=== PATIENT | male | born 1935 | race Two or more races ===

== ENCOUNTER 2019-07-19 13:35 | Emergency (ER) | payer OTHER ==
[~2019-07-19] VITALS: Ht 157.5 cm; Wt 68.0 kg
[~2019-07-19 13:35] MED LIST: CARAFATE SU1 G/10 ML PO; CIPRO500 MG PO; FLAGYL500MG PO; INTESTINEX1 CA1 PO; PROTONIX40 MG PO; TRAM1TAB PO
[2019-07-19] MEDS ORDERED: CIPRO500 MG PO (13:58)
== END 2019-07-19 19:40 | disposition home or self-care (01) ==
LOC: ER 13:35
DX: K52.89 Other specified noninfective gastroenteritis and colitis (principal); K94.01 Colostomy hemorrhage

== ENCOUNTER 2021-10-14 05:30 | Day surgery (SDC) | payer OTHER | END 2021-10-14 10:25 | disposition home or self-care (01) | LOC: AMB-ENDOS 05:30 → CIR.AMB 13:00 | PROVIDERS: ATTEND Surgery | DX: D12.4 Benign neoplasm of descending colon (principal); Z93.3 Colostomy status; Z85.038 Personal history of other malignant neoplasm of large intestine; K43.5 Parastomal hernia without obstruction or gangrene; Z20.822 Contact with and (suspected) exposure to COVID-19 ==